=== PATIENT | female | born 1940 | race Caucasian/White ===

== ENCOUNTER 2021-02-12 13:06 | Inpatient (IN) ==
[2021-02-12 14:08] LABS: ABS Lymphocytes 0.9 10^3/ul (1.0-4.8); ABS Monocytes 0.3 10^3/ul (0-0.8); ABS Neutrophils 1.9 10^3/ul (1.5-7.7); Hematocrit 34 % (35-47); Hemoglobin 11.7 g/dL (12.0-16.0); Lymphocyte % 27.9 %; Mean Corpuscular HGB Conc 34 g/dL (31-36); Mean Corpuscular Hemoglobin 31 pg (27-31); Mean Corpuscular Volume 90 fL (80-97); Nucleated Red Blood Cells % 0.2; Red Blood Count 3.81 10^6 /uL (3.70-4.87); Red Cell Distribution Width 15 % (10-15); White Blood Count 3.1 10^3/uL (3.5-10.8)
[2021-02-12 14:33] LABS: Albumin 3.6 g/dL (3.2-5.2); Albumin/Globulin Ratio 1.3 (1-3); Calcium 8.2 mg/dL (8.6-10.3); Globulin 2.7 g/dL (2-4); Potassium 3.2 mmol/L (3.5-5.0); Total Bilirubin 1.1 mg/dL (0.2-1.0); Total Protein 6.3 g/dL (6.4-8.9)
[2021-02-12 14:45] LABS: Mean Platelet Volume 9.2 fL (7.4-10.4); Platelet Count 92 10^3/uL (150-450)
[2021-02-12] MEDS ORDERED: Potassium Chlor 10 meq TAB PO ONE (15:04)
[2021-02-12] MEDS ORDERED: Remdesivir 100 mg Vial 200 MG in NS 0.9% 250 ml 210 ML IV ONE (15:12)
[2021-02-12] MEDS ORDERED: Remdesivir 100 mg Vial 100 MG in NS 0.9% 250 ml 230 ML IV SCH (15:15)
[2021-02-12] MEDS ORDERED: Dexamethasone IV 6 MG in NS 0.9% 50 ML 50 ML IVPB ONE (15:19)
[2021-02-12] MEDS ORDERED: BENZONATATE 200 MG PO SCH (15:30)
[2021-02-12 15:45] LABS: Magnesium 1.5 mg/dL (1.9-2.7)
[2021-02-12 15:51] LABS: C Reactive Protein 18.81 mg/L (<8.01)
[2021-02-12] MEDS ORDERED: NS 0.9% 250 ml 250 ML ONE (15:52)
[2021-02-12] MEDS ORDERED: Magnesium Sulfate 2 gm BAG 2 GM/50 ML BAG IVPB ONE (15:53)
[2021-02-12 16:25] LABS: INR 1.23 (0.86-1.15)
[2021-02-12 16:27] LABS: Rapid COVID-19 Molecular Detected (Undetected)
[2021-02-12 16:36] LABS: Albumin 3.6 g/dL (3.2-5.2); Albumin/Globulin Ratio 1.4 (1-3); Calcium 8.2 mg/dL (8.6-10.3); Globulin 2.6 g/dL (2-4); Potassium 3.1 mmol/L (3.5-5.0); Total Bilirubin 1.1 mg/dL (0.2-1.0); Total Protein 6.2 g/dL (6.4-8.9)
[2021-02-12] MEDS: Enoxaparin 40 MG/0.4 ML SYR SUBCUT SCH (21:15)
[2021-02-13 06:22] LABS: ABS Lymphocytes 0.5 10^3/ul (1.0-4.8); ABS Monocytes 0.1 10^3/ul (0-0.8); ABS Neutrophils 1.1 10^3/ul (1.5-7.7); Hematocrit 35 % (35-47); Lymphocyte % 28.1 %; Mean Corpuscular HGB Conc 35 g/dL (31-36); Mean Corpuscular Hemoglobin 31 pg (27-31); Mean Corpuscular Volume 89 fL (80-97); Mean Platelet Volume 9.2 fL (7.4-10.4); Platelet Count 87 10^3/uL (150-450); Red Blood Count 3.87 10^6 /uL (3.70-4.87); Red Cell Distribution Width 15 % (10-15); White Blood Count 1.8 10^3/uL (3.5-10.8)
[2021-02-13 06:29] LABS: Albumin 3.5 g/dL (3.2-5.2); Albumin/Globulin Ratio 1.3 (1-3); Calcium 8.2 mg/dL (8.6-10.3); Globulin 2.8 g/dL (2-4); INR 1.12 (0.86-1.15); Potassium 3.4 mmol/L (3.5-5.0); Total Protein 6.3 g/dL (6.4-8.9)
[2021-02-13] MEDS ORDERED: Potassium Chlor 10 meq TAB PO ONE (07:13)
[2021-02-13] MEDS ORDERED: Pneumococcal Vac 23-Polyvalent IM ONE (09:00)
[2021-02-13] MEDS ORDERED: Flu vaccine *QUAD* 2021-22* 0.5 ML SYRINGE IM ONE (09:00)
[2021-02-13 09:57] LABS: Magnesium 2.2 mg/dL (1.9-2.7)
[2021-02-13] MEDS: Enoxaparin 40 MG/0.4 ML SYR SUBCUT SCH (14:03)
[2021-02-13 16:50] VITALS: BP 113/68
[2021-02-13] MEDS ORDERED: Remdesivir 100 mg Vial 100 MG in NS 0.9% 250 ml 230 ML IV SCH (21:00)
== END 2021-02-13 18:00 | disposition home or self-care (01) | DRG 177 ==
LOC: ED 13:06 → SUATTDRO 14:56 → MED 14:56
PROVIDERS: ADMIT Internal Medicine; ATTEND Internal Medicine